=== PATIENT | male | born 1960 | race Caucasian/White ===

== ENCOUNTER 2017-12-19 00:08 | Emergency (ER) | payer OTHER, MEDICAID ==
[~2017-12-19] VITALS: Ht 180.3 cm; Wt 77.3 kg
[~2017-12-19 00:08] MED LIST: ALBU8.5H8 IH; ATAZ300C PO; ELVI1TAB3 PO; LACT1CAP26 PO; PROM6.25 PO
[2017-12-19] MEDS ORDERED: ondansetron/PF 4mg/2ml inj IV ONE (00:15)
[2017-12-19] MEDS ORDERED: nitroGLYCERIN 0.4mg SUBLingual tab SL PRN (00:15)
[2017-12-19] MEDS ORDERED: morphine 2 MG/ML inj. syringe IV ONE (00:15)
[2017-12-19 00:24] LABS: BASOPHILS # (AUTO) 0.1 X10'3 (0-0.2); BASOPHILS % (AUTO) 0.8 % (0-1); EOSINOPHILS # (AUTO) 0.2 X10'3 (0-0.9); EOSINOPHILS % (AUTO) 2.2 % (0-6); HEMATOCRIT 44.9 % (42.0-52.0); LYMPHOCYTES # (AUTO) 1.5 X10'3 (1.1-4.8); LYMPHOCYTES % (AUTO) 21.3 % (21-51); MEAN CORPUSCULAR HEMOGLOBIN 29.9 PG (27.0-31.0); MEAN CORPUSCULAR HGB CONC 33.4 % (33.0-36.5); MEAN CORPUSCULAR VOLUME 89.7 FL (78-98); MEAN PLATELET VOLUME 8.7 FL (7.4-10.4); NEUTROPHILS # (AUTO) 4.1 X10'3 (1.8-7.7); NEUTROPHILS % (AUTO) 61.7 % (42-75); PLATELET COUNT 208 X10'3 (140-440); RED BLOOD COUNT 5.01 X10'6 (4.70-6.10); RED CELL DISTRIBUTION WIDTH 13.7 % (11.5-14.5); WHITE BLOOD COUNT 6.9 X10'3 (4.5-11.0)
[2017-12-19 00:46] LABS: ALANINE AMINOTRANSFERASE 522 U/L (12-78); ALBUMIN 3.3 G/DL (3.4-5.0); ALBUMIN/GLOBULIN RATIO 0.9 (1.1-1.5); ALKALINE PHOSPHATASE 110 IU/L (46-116); ANION GAP 9 (8-16); ASPARTATE AMINO TRANSFERASE 237 U/L (10-37); BILIRUBIN,TOTAL 0.7 MG/DL (0.1-1.0); BLOOD UREA NITROGEN 19 MG/DL (7-18); BUN/CREATININE RATIO 17.6 (5.4-32.0); CALCIUM 8.6 MG/DL (8.5-10.1); CHLORIDE 107 MMOL/L (99-107); CREATININE 1.08 MG/DL (0.60-1.10); GLUCOSE 104 MG/DL (70-104); MAGNESIUM 2.2 MG/DL (1.5-2.4); POTASSIUM 3.6 MMOL/L (3.5-5.1); SODIUM 143 MMOL/L (135-145); TOTAL CARBON DIOXIDE 26.6 MMOL/L (24-32); TOTAL PROTEIN 6.9 G/DL (6.4-8.2); eGFR 71 ML/MIN
[2017-12-19] MEDS ORDERED: SULF1TAB49 PO (01:48)
[2017-12-19] MEDS ORDERED: LEVO750T21 PO (01:48)
[2017-12-19 03:46] VITALS: BP 123/87
== END 2017-12-19 03:53 | disposition home or self-care (01) ==
LOC: ER 00:08
DX: R07.9 Chest pain, unspecified (principal); R06.00 Dyspnea, unspecified; R74.0 Nonspecific elevation of levels of transaminase and lactic acid dehydrogenase [LDH]; J40 Bronchitis, not specified as acute or chronic; I11.0 Hypertensive heart disease with heart failure; I50.9 Heart failure, unspecified; J44.9 Chronic obstructive pulmonary disease, unspecified; F12.90 Cannabis use, unspecified, uncomplicated; F15.90 Other stimulant use, unspecified, uncomplicated; F17.210 Nicotine dependence, cigarettes, uncomplicated; Z88.5 Allergy status to narcotic agent; Z88.1 Allergy status to other antibiotic agents; Z79.899 Other long term (current) drug therapy; Z21 Asymptomatic human immunodeficiency virus [HIV] infection status; Z59.0 Homelessness
CPT/HCPCS: 36415; 71045; 80053; 83735; 83880; 84484; 85025; 85379; 93005; 96374; 96375; 99285; J2270; J2405

== ENCOUNTER 2018-01-07 18:03 | Emergency (ER) | payer OTHER, MEDICAID ==
[~2018-01-07] VITALS: Ht 182.9 cm; Wt 90.9 kg
[2018-01-07] MEDS ORDERED: predniSONE 20 mg tablet PO ONE (18:25)
[2018-01-07] MEDS ORDERED: ipratropium/albuterol 3ml nebule NEB ONE (18:25)
[2018-01-07] MEDS ORDERED: PRED20TA PO (19:11)
[2018-01-07] MEDS ORDERED: CEPH-572 PO (19:11)
[2018-01-07] MEDS ORDERED: ALBU6.7H INH (19:11)
[2018-01-07 19:22] VITALS: BP 122/83
== END 2018-01-07 19:26 | disposition home or self-care (01) ==
LOC: ER 18:03
DX: J44.9 Chronic obstructive pulmonary disease, unspecified (principal); F17.210 Nicotine dependence, cigarettes, uncomplicated; I11.0 Hypertensive heart disease with heart failure; I50.9 Heart failure, unspecified; Z59.0 Homelessness; Z88.5 Allergy status to narcotic agent; F12.10 Cannabis abuse, uncomplicated; F15.10 Other stimulant abuse, uncomplicated; Z98.890 Other specified postprocedural states; Z79.899 Other long term (current) drug therapy
CPT/HCPCS: 94640; 94760; 99283; J7512

== ENCOUNTER 2018-01-12 20:59 | Emergency (ER) | payer OTHER, MEDICAID ==
[~2018-01-12] VITALS: Ht 182.9 cm; Wt 85.0 kg
[~2018-01-12 20:59] MED LIST changes: +ALBU6.7H INH; +CEPH-572 PO; +PRED20TA PO
[2018-01-12] MEDS ORDERED: SULF1TAB49 PO (22:38)
[2018-01-12] MEDS ORDERED: sulfamethoxazole/trimethoprim DS (800/160mg) tablet PO ONE (22:40)
[2018-01-12 22:51] VITALS: BP 124/69
== END 2018-01-12 22:56 | disposition home or self-care (01) ==
LOC: ER 20:59
DX: L03.116 Cellulitis of left lower limb (principal); I11.0 Hypertensive heart disease with heart failure; I50.9 Heart failure, unspecified; J44.9 Chronic obstructive pulmonary disease, unspecified; F17.200 Nicotine dependence, unspecified, uncomplicated; F12.10 Cannabis abuse, uncomplicated; F15.10 Other stimulant abuse, uncomplicated; Z88.5 Allergy status to narcotic agent; Z59.0 Homelessness
CPT/HCPCS: 99283

== ENCOUNTER 2018-01-15 07:49 | Emergency (ER) | payer OTHER, MEDICAID ==
[~2018-01-15] VITALS: Ht 183.5 cm; Wt 92.0 kg
[~2018-01-15 07:49] MED LIST changes: -CEPH-572 PO; -PRED20TA PO; -PROM6.25 PO; +SULF1TAB49 PO
[2018-01-15 08:15] VITALS: BP 127/87
[2018-01-15] MEDS ORDERED: DOXY-1 PO (08:43)
== END 2018-01-15 09:11 | disposition home or self-care (01) ==
LOC: ER 07:49
DX: L03.116 Cellulitis of left lower limb (principal); L02.416 Cutaneous abscess of left lower limb; F12.10 Cannabis abuse, uncomplicated; F15.10 Other stimulant abuse, uncomplicated; I11.0 Hypertensive heart disease with heart failure; I50.9 Heart failure, unspecified; J44.9 Chronic obstructive pulmonary disease, unspecified; Z59.0 Homelessness; Z98.890 Other specified postprocedural states; Z88.1 Allergy status to other antibiotic agents; Z88.5 Allergy status to narcotic agent; Z79.899 Other long term (current) drug therapy; Z91.018 Allergy to other foods
CPT/HCPCS: 99283

== ENCOUNTER 2018-02-16 12:58 | Emergency (ER) | payer MEDICAID, OTHER ==
[~2018-02-16] VITALS: Ht 185.4 cm; Wt 72.0 kg
[~2018-02-16 12:58] MED LIST changes: +DOXY-1 PO; -SULF1TAB49 PO
[2018-02-16 13:03] VITALS: BP 121/94
[2018-02-16] MEDS ORDERED: TETanus/Pertussis (Acell)/Diphther VAC/PF (Tdap-Adult) 0.5ml syringe IM ONE (13:10)
== END 2018-02-16 13:30 | disposition home or self-care (01) ==
LOC: ER 12:58
DX: I83.92 Asymptomatic varicose veins of left lower extremity (principal); I11.0 Hypertensive heart disease with heart failure; I50.9 Heart failure, unspecified; J44.9 Chronic obstructive pulmonary disease, unspecified; F17.200 Nicotine dependence, unspecified, uncomplicated; F12.10 Cannabis abuse, uncomplicated; F15.10 Other stimulant abuse, uncomplicated; Z88.5 Allergy status to narcotic agent; Z88.8 Allergy status to other drugs, medicaments and biological substances; Z88.1 Allergy status to other antibiotic agents; Z79.899 Other long term (current) drug therapy; Z98.890 Other specified postprocedural states; Z59.0 Homelessness
CPT/HCPCS: 99282; A6449; 99281

== ENCOUNTER 2022-10-15 09:16 | Emergency (ER) | payer OTHER, MEDICAID ==
[~2022-10-15] VITALS: Ht 182.9 cm; Wt 106.0 kg
[~2022-10-15 09:16] MED LIST changes: -ALBU6.7H INH; +ALBU6.7H14 INH; +ALBU8.5H17 IH; -ALBU8.5H8 IH
[2022-10-15 10:31] VITALS: BP 149/110
[2022-10-15] MEDS ORDERED: bacitracin 15gm ointment TP ONE (10:55)
[2022-10-15] MEDS ORDERED: LIDOcaine 1% W/epiNEPHrine 1:200,000 10ml vial IJ ONE (10:55)
[2022-10-15] MEDS ORDERED: LIDOCAINE 1%/EPI 1:100,000 inj. 10 ML multi-dose vial IJ ONE (11:00)
[2022-10-15] MEDS ORDERED: IBUP-1984 PO (12:22)
[2022-10-15] MEDS ORDERED: AMOX-117 PO (12:22)
== END 2022-10-15 12:46 | disposition home or self-care (01) ==
LOC: ER 09:17
DX: S31.31XA Laceration without foreign body of scrotum and testes, initial encounter (principal); X58.XXXA Exposure to other specified factors, initial encounter; Y93.89 Activity, other specified; Y92.89 Other specified places as the place of occurrence of the external cause; Y99.8 Other external cause status; I11.9 Hypertensive heart disease without heart failure; J44.9 Chronic obstructive pulmonary disease, unspecified; Z79.899 Other long term (current) drug therapy; Z88.1 Allergy status to other antibiotic agents; Z88.5 Allergy status to narcotic agent; Z91.018 Allergy to other foods
CPT/HCPCS: 12011; 99283; J3490; 12001; A6449

== ENCOUNTER 2022-11-27 13:06 | Emergency (ER) | payer OTHER, MEDICAID ==
[~2022-11-27] VITALS: Ht 182.9 cm; Wt 103.0 kg
[2022-11-27 13:12] VITALS: BP 152/104
[2022-11-27] MEDS ORDERED: HYDROcodone/acetaminophen 10/325mg tab PO ONE (14:32)
[2022-11-27] MEDS ORDERED: HYDR-3965 PO (14:37)
[2022-11-27] MEDS ORDERED: IBUP-1986 PO (14:37)
== END 2022-11-27 14:53 | disposition home or self-care (01) ==
LOC: ER 13:07
DX: M79.605 Pain in left leg (principal); M25.552 Pain in left hip; I11.0 Hypertensive heart disease with heart failure; I50.9 Heart failure, unspecified; J44.9 Chronic obstructive pulmonary disease, unspecified; F17.200 Nicotine dependence, unspecified, uncomplicated; F12.90 Cannabis use, unspecified, uncomplicated; F15.90 Other stimulant use, unspecified, uncomplicated; Z98.890 Other specified postprocedural states; Z59.00 Homelessness unspecified; Z88.1 Allergy status to other antibiotic agents; Z88.5 Allergy status to narcotic agent; Z88.8 Allergy status to other drugs, medicaments and biological substances; Z79.2 Long term (current) use of antibiotics; Z79.899 Other long term (current) drug therapy; W19.XXXA Unspecified fall, initial encounter; Y93.89 Activity, other specified; Y92.89 Other specified places as the place of occurrence of the external cause; Y99.8 Other external cause status
CPT/HCPCS: 73502; 99283

== ENCOUNTER 2023-01-23 21:58 | Emergency (ER) | payer MEDICAID, OTHER ==
[~2023-01-23] VITALS: Ht 182.9 cm; Wt 107.2 kg
[~2023-01-23 21:58] MED LIST changes: +IBUP-1986 PO
[2023-01-23 22:11] VITALS: BP 136/79
[2023-01-23] MEDS ORDERED: TETRACAINE 0.5% 4 ML OPHTHALMIC DROPS LEFTEYE ONE (23:30)
[2023-01-23] MEDS ORDERED: ciprofloxacin 0.3% 2.5ml ophthalmic solution LEFTEYE ONE (23:55)
[2023-01-24] MEDS ORDERED: CIPR2.5D21 LEFTEYE
== END 2023-01-24 00:27 | disposition home or self-care (01) ==
LOC: ER 21:59
DX: S05.02XA Injury of conjunctiva and corneal abrasion without foreign body, left eye, initial encounter (principal); I11.0 Hypertensive heart disease with heart failure; I50.9 Heart failure, unspecified; J44.9 Chronic obstructive pulmonary disease, unspecified; F15.20 Other stimulant dependence, uncomplicated; F12.90 Cannabis use, unspecified, uncomplicated; Z88.1 Allergy status to other antibiotic agents; Z88.8 Allergy status to other drugs, medicaments and biological substances; Z91.018 Allergy to other foods; Z59.00 Homelessness unspecified; X58.XXXA Exposure to other specified factors, initial encounter; Y93.89 Activity, other specified; Y92.89 Other specified places as the place of occurrence of the external cause; Y99.8 Other external cause status
CPT/HCPCS: 99283